=== PATIENT | female | born 1945 | race Caucasian/White ===

== ENCOUNTER → 2016-11-23 | Outpatient (CLI) | payer OTHER, MEDICARE ==
--- NOTE | 2016-11-23 16:12 | MAMMOGRAPHY REPORT ---
BILATERAL DIGITAL SCREENING MAMMOGRAM TOMOSYNTHESIS WITH CAD: 11/23/2016 CLINICAL HISTORY: Routine screening. Patient has no complaints. TECHNIQUE: Breast tomosynthesis in addition to standard 2D mammography was performed. Current study was also evaluated with a Computer Aided Detection (CAD) system. COMPARISON: Comparison is made to exams dated: 11/17/2015 mammogram - [facility], 1 12/14/2013 mammogram, 10/05/2014 mammogram, 10/03/2013 mammogram, 09/30/2012 mammogram, and 09/28/2011 mammogram. BREAST COMPOSITION: The tissue of both breasts is heterogeneously dense, which may obscure small ma sses. FINDINGS: No suspicious masses, calcifications, or areas of architectural distortion are noted in e ither breast. There has been no significant interval change compared to prior exams. Scattered bilat eral benign-appearing calcifications are not significantly changed. IMPRESSION: ACR BI-RADS CATEGORY 2: BENIGN There is no mammographic evidence of malignancy. A 1 year screening mammogram is recommended. The p atient will receive written notification of the results. Approximately 10% of breast cancers are not detected with mammography. A negative mammographic repor t should not delay biopsy if a clinically suggestive mass is present. Maricruz Naranjo M.D. /:11/23/2016 13:43:16 Domain Architect: Katerin Waldron, [facility] letter sent: Normal 1/2 BI-RADS Code: ACR BI-RADS Category 2: Benign
== END | disposition home or self-care (01) ==
LOC: C.MAMM 13:12
PROVIDERS: ATTEND Obstetrics & Gynecology
DX: Z12.31 Encounter for screening mammogram for malignant neoplasm of breast (principal)

== ENCOUNTER → 2017-02-13 | Outpatient (CLI) | payer OTHER, MEDICARE ==
[2017-02-13 13:10] LABS: BASO % 0.6 %; BASO ABS # 0.04 K/uL (0-0.2); COMPLETE YES; EOS % 3.1 %; HEMATOCRIT 39.6 % (37-47); IG% 0.2 %; LYMPH % 34.9 %; LYMPH ABS # 2.27 K/uL (1.2-3.4); MEAN CORPUSCULAR HEMOGLOBIN 30.3 pg (25-34); MEAN CORPUSCULAR HGB CONC 34.1 g/dl (32-36); MEAN PLATELET VOLUME 12.2 fL (7.4-10.4); MONO % 6.9 %; NEUT % 54.3 %; PLATELET COUNT 247 K/uL (130-400); RED BLOOD COUNT 4.45 M/uL (4.2-5.4); WHITE BLOOD COUNT 6.51 K/uL (4.8-10.8)
[2017-02-13 13:58] LABS: ALT/SGPT 23 U/L (12-78); AST/SGOT 17 U/L (15-37); BLOOD UREA NITROGEN 13 mg/dl (7-18); CALCIUM 8.8 mg/dl (8.5-10.1); CARBON DIOXIDE 30 mmol/L (21-32); CHLORIDE 105 mmol/L (98-107); CHOLESTEROL 171 mg/dl (0-200); CREATININE 0.76 mg/dl (0.60-1.20); GLUCOSE 101 mg/dl (70-99); POTASSIUM 4.5 mmol/L (3.5-5.1); SODIUM 140 mmol/L (136-145)
[2017-02-13 14:01] LABS: ALB/GLOB RATIO 0.8 (0.9-2); ALKALINE PHOSPHATASE 91 U/L (45-117); CHOLESTEROL/HDL RATIO 2.3; HDL CHOLESTEROL 73 mg/dl; LDL CHOLESTEROL CALCULATED 75 mg/dl; TRIGLYCERIDES 113 mg/dl (0-150); VERY LOW DENSITY LIPOPROT CALC 23 mg/dl
== END | disposition home or self-care (01) ==
LOC: C.LABMFLN 12:08
PROVIDERS: ATTEND Family Medicine
DX: I10 Essential (primary) hypertension (principal); E78.5 Hyperlipidemia, unspecified

== ENCOUNTER → 2017-08-16 | Outpatient (CLI) | payer OTHER, MEDICARE ==
[2017-08-16 18:04] LABS: BASO % 0.6 %; BASO ABS # 0.04 K/uL (0-0.2); COMPLETE YES; EOS % 3.3 %; HEMATOCRIT 39.3 % (37-47); IG% 0.1 %; LYMPH % 35.4 %; LYMPH ABS # 2.39 K/uL (1.2-3.4); MEAN CELL VOLUME 87.9 fL (80-100); MEAN CORPUSCULAR HGB CONC 31.8 g/dl (32-36); MEAN PLATELET VOLUME 11.7 fL (7.4-10.4); MONO % 5.9 %; NEUT % 54.7 %; PLATELET COUNT 289 K/uL (130-400); RED BLOOD COUNT 4.47 M/uL (4.2-5.4); WHITE BLOOD COUNT 6.76 K/uL (4.8-10.8)
[2017-08-16 18:23] LABS: SYNOVIAL FLUID APPEARANCE HAZY; SYNOVIAL FLUID COLOR YELLOW; SYNOVIAL FLUID MONONUC RELAT 32.7 %; SYNOVIAL FLUID POLYNUC RELAT 67.3 %
[2017-08-16 18:24] LABS: C-REACTIVE PROTEIN 1.44 mg/dl (0-0.29); RHEUMATOID FACTOR < 10.0 U/mL (0-15); URIC ACID 3.3 mg/dl (2.6-7.2)
== END | disposition home or self-care (01) ==
LOC: C.LABMFLN 13:24
PROVIDERS: ATTEND Orthopaedic Surgery Sports Medicine
DX: M25.462 Effusion, left knee (principal)

== ENCOUNTER → 2017-12-12 | Outpatient (CLI) | payer OTHER, MEDICARE ==
--- NOTE | 2017-12-13 14:35 | MAMMOGRAPHY REPORT ---
BILATERAL DIGITAL SCREENING MAMMOGRAM TOMOSYNTHESIS WITH CAD: 12/12/2017 CLINICAL HISTORY: Routine screening. Patient has no complaints. TECHNIQUE: Breast tomosynthesis in addition to standard 2D mammography was performed. Current study was also evaluated with a Computer Aided Detection (CAD) system. COMPARISON: Comparison is made to exams dated: 11/23/2016 mammogram, 11/17/2015 mammogram - [facility], 10/13/2014 mammogram, 10/05/2014 mammogram, 10/03/2013 mammogram, and 09/30/2012 ma mmogram. BREAST COMPOSITION: The tissue of both breasts is heterogeneously dense, which may obscure small mas ses. FINDINGS: No suspicious masses, calcifications, or areas of architectural distortion are noted in ei ther breast. There has been no significant interval change compared to prior exams. IMPRESSION: ACR BI-RADS CATEGORY 1: NEGATIVE There is no mammographic evidence of malignancy. A 1 year screening mammogram is recommended. The pa tient will receive written notification of the results. Approximately 10% of breast cancers are not detected with mammography. A negative mammographic report should not delay biopsy if a clinically suggestive mass is present. Maricruz Naranjo M.D. ah/:12/12/2017 16:32:33 Blood Typer: Pam GRIFFIN(Freddie)(Dash), [facility] letter sent: Normal 1/2 BI-RADS Code: ACR BI-RADS Category 1: Negative
== END | disposition home or self-care (01) ==
LOC: C.MAMM 10:41
PROVIDERS: ATTEND Obstetrics & Gynecology
DX: Z12.31 Encounter for screening mammogram for malignant neoplasm of breast (principal)

== ENCOUNTER → 2018-02-21 | Outpatient (CLI) | payer OTHER, MEDICARE ==
[2018-02-21 13:02] LABS: BASO % 0.8 %; BASO ABS # 0.05 K/uL (0-0.2); EOS ABS # 0.18 K/uL (0-0.5); HEMATOCRIT 41.3 % (37-47); HEMOGLOBIN 13.9 g/dL (12.0-16.0); LYMPH % 42.3 %; MEAN CORPUSCULAR HGB CONC 33.7 g/dl (32-36); MONO ABS # 0.47 K/uL (0.11-0.59); NEUT % 45.9 %; NEUT ABS # 2.71 K/uL (1.4-6.5); PLATELET COUNT 236 K/uL (130-400); RED CELL DISTRIBUTION WIDTH CV 13.3 % (11.5-14.5); RED CELL DISTRIBUTION WIDTH SD 43.6 fL (36.4-46.3); WHITE BLOOD COUNT 5.91 K/uL (4.8-10.8)
[2018-02-21 14:34] LABS: ALT/SGPT 32 U/L (12-78); BLOOD UREA NITROGEN 13 mg/dl (7-18); CALCIUM 9.3 mg/dl (8.5-10.1); CARBON DIOXIDE 28 mmol/L (21-32); CHOLESTEROL 198 mg/dl (0-200); CREATININE 0.81 mg/dl (0.60-1.20); GLUCOSE 101 mg/dl (70-99); POTASSIUM 3.9 mmol/L (3.5-5.1); SODIUM 138 mmol/L (136-145)
[2018-02-21 14:37] LABS: ALKALINE PHOSPHATASE 86 U/L (45-117); AST/SGOT 29 U/L (15-37); LDL CHOLESTEROL CALCULATED 99 mg/dl; TOTAL PROTEIN 7.9 gm/dl (6.4-8.2)
== END | disposition home or self-care (01) ==
LOC: C.LABMFLN 07:21
PROVIDERS: ATTEND Family Medicine
DX: E78.5 Hyperlipidemia, unspecified (principal); I10 Essential (primary) hypertension

== ENCOUNTER → 2018-03-06 | Outpatient (CLI) | payer OTHER, MEDICARE | END | disposition home or self-care (01) | LOC: C.PAPS 14:06 | PROVIDERS: ATTEND Obstetrics & Gynecology | DX: Z12.4 Encounter for screening for malignant neoplasm of cervix (principal) ==